=== PATIENT | male | born 1940 | race Caucasian/White ===

== ENCOUNTER 2019-02-02 18:13 | Emergency (ER) | payer MEDICARE, BC ==
[~2019-02-02] VITALS: Ht 190.5 cm; Wt 81.6 kg
[~2019-02-02 18:13] MED LIST: ACET1TAB38 PO; ALOE25CA2 PO; AMLO-304 PO; ASPI325T14 PO; ATOR40TA PO; CINN500C2 PO; GARL10002 PO; GLIM2TAB2 PO; INSU100I31 SQ; ISOS30TA4 PO; METF10007 PO; MULT-651 PO; NIAC500T PO; RANI300T PO; SAW160CA4 PO; SITA100T PO; VALS160T3 PO
[2019-02-02 19:00] VITALS: BP 133/78
[2019-02-02 19:50] VITALS: BP 132/74
--- NOTE | 2019-02-02 19:54 | ER.PDOC ---
General Chief Complaint: Requesting Medical Care Stated Complaint: N/V/D Time seen by MD: 19:53 Source: patient Exam Limitations: no limitations History of Present Illness Initial Comments one day of diarrhea watery in nature x 5, vomiting x 2 today with mild mid abd pain, no blood in stool or vomit, patient has pancreatic ca but no rad or chemo since last year, no fever or other complaints, no bad food or sick contacts that are known Timing/Duration: 24 hours Severity/Quality: mild Radiation: epigastric Associated Symptoms: diarrhea, nausea/vomiting Allergies: Coded Allergies: No Known Allergies (Unverified , 08/04/15) Home Meds Active Scripts Acetaminophen With Codeine (TYLENOL-COD #4 TABLET) 1 Each Tablet, 1 EACH PO TID PRN for PAIN, #30 TAB 0 Refills Prov:DENISSE MESSINA MD 06/27/17 Reported Medications Niacin (NIASPAN) 500 Mg Tab.er.24h, 1 TAB PO HS, #30 TAB 5 Refills 06/25/17 Multivits-Min/FA/Lycopene/Lut (Abc Plus Tablet) 1 Each Tablet, 1 EACH PO DAILY, TABLET 06/25/17 Cinnamon Bark (CINNAMON) 500 Mg Capsule, 500 MG PO DAILY, CAPSULE 06/25/17 Garlic (GARLIC) 1,000 Mg Capsule, 1000 MG PO HS, CAPSULE 06/25/17 Aspirin (ASPIRIN) 325 Mg Tablet, 1 TAB PO DAILY, #30 TAB 5 Refills 06/25/17 Aloe Vera (ALOE VERA) 25 Mg Capsule, 50 MG PO BID, CAPSULE 06/25/17 Saw Hopkins (SAW PALMETTO) 160 Mg Capsule, 160 MG PO DAILY, CAPSULE 06/25/17 Insulin Degludec (Tresiba Flextouch U-100) 100 Unit/Ml (3 Ml) Insuln.pen, 14 UNIT SQ DAILY 06/25/17 Valsartan (DIOVAN) 160 Mg Tablet, 1 TAB PO DAILY, #30 TAB 5 Refills 06/25/17 Isosorbide Mononitrate (ISOSORBIDE MONONITRATE ER) 30 Mg Tab.er.24h, 1 TAB PO DAILY, #30 TAB 5 Refills 08/04/15 Glimepiride (GLIMEPIRIDE) 2 Mg Tablet, 1 TAB PO DAILY, #30 TAB 5 Refills 08/04/15 Atorvastatin 40MG (LIPITOR 40MG) 40 Mg Tablet, 1 TAB PO HS, #90 TAB 1 Refill 08/04/15 Sitagliptin Phosphate (JANUVIA) 100 Mg Tablet, 1 TAB PO DAILY, #30 TAB 5 Refills 08/04/15 Metformin Hcl (METFORMIN HCL) 1,000 Mg Tablet, 1 TAB PO BID, #60 TAB 5 Refills 08/04/15 Ranitidine Hcl (RANITIDINE HCL) 300 Mg Tablet, 1 TAB PO HS, #90 TAB 3 Refills 08/04/15 Past Medical History Medical History: other Surgical History: no surgical history Social History Drug Use: none Constitutional: denies chills, denies fever EENTM: denies ear pain, denies nose pain Respiratory: denies cough, denies shortness of breath, denies SOB with exertion , denies SOB at rest Cardiovascular: denies chest pain, denies lightheadedness, denies palpitations , denies syncope Gastrointestinal: diarrhea, nausea, vomiting Genitourinary: denies burning, denies frequency, denies flank pain Skin: denies rash Psychiatric/Neurological: denies headache, denies numbness, denies paresthesia Endocrine: denies increased urine Hematologic/Lymphatic: denies anemia Physical Exam General Appearance: No Apparent Distress, WD/WN HEENT: PERRL/EOMI, Normal ENT Inspection Neck: Non-Tender, Full Range of Motion Respiratory: chest non-tender, lungs clear, normal breath sounds Cardiovascular: Normal Peripheral Pulses, Regular Rate, Rhythm Gastrointestinal: Non Tender Back: Normal Inspection, No CVA Tenderness Extremities: Normal Range of Motion, Non-Tender, Normal Inspection 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
[2019-02-02] MEDS ORDERED: NS 1000ML 1,000 ML IV ONE ×2 (20:00)
[2019-02-02 20:25] LABS: BASOPHIL % 0.1 % (0.0-0.2); EOSINOPHIL % 0.1 % (0.0-5.0); HEMOGLOBIN 12.8 g/dL (13.9-16.3); LYMPHOCYTES # 0.2 10^3/uL (1.0-4.8); LYMPHOCYTES % 2.2 % (24.0-44.0); MEAN CELL HGB 32.6 pg (26-34); MEAN CELL HGB CONCENTRATION 33.7 g/dL (33-37); MEAN CORP VOLUME 96.7 fL (78-100); MEAN PLATELET VOLUME 8.8 fL (7.8-11.0); MONOCYTES # 0.9 10^3/uL (0.3-0.8); MONOCYTES % 9.7 % (5.0-12.0); NEUTROPHIL # 7.9 10^3/uL (1.8-7.7); NEUTROPHILS % 87.8 % (41.0-85.0); RED CELL DISTRIBUTION WIDTH 13.2 % (11.5-14.5)
[2019-02-02] MEDS ORDERED: NS 1000ML 1,000 ML ONE (20:30)
[2019-02-02 20:36] VITALS: BP 124/66
[2019-02-02 20:45] LABS: CALCIUM 8.9 mg/dL (8.4-10.5); CARBON DIOXIDE 23.2 mmol/L (20.0-32)
[2019-02-02 20:57] LABS: BAND NEUTROPHILS 6 % (2-6); LYMPHOCYTE 5 % (25-36); SEGMENTED NEUTROPHILS 82 % (31-76)
[2019-02-02 20:58] LABS: MONOCYTE 7 % (3-9)
[2019-02-02 21:36] VITALS: BP 140/72
--- NOTE | 2019-02-02 21:50 | DIREP ---
PROCEDURE:CT ABDOMEN/PELVIS W/ CONTRAST COMPARISON:[facility], MR, MRI ABDOMEN W & W/O CONTRAST, 06/26/2017, 06:17 PM. [facility], CT, CT ABD/PELVIS W/ CONTRAST, 06/25/2017, 09:09 PM. INDICATIONS:abd pain with diarrhea with hx pancreatic ca TECHNIQUE:Axial images were created through the abdomen and pelvis with non-ionic intravenous contrast material. No oral contrast was administered. Sagittal and coronal reconstructions were performed from source images. FINDINGS: LOWER CHEST:Mild dependent atelectasis. LIVER: No hepatic lesion. Portal veins are patent. BILIARY: Gallbladder is borderline distended. There is gallbladder wall thickening up to 6 mm. Common bile duct stent in place. No intrahepatic biliary dilation. PANCREAS: Atrophic. The mass at the pancreatic neck is difficult to identify, there is residual tissue in this area measuring 2.9 x 1.8 cm. SPLEEN: Normal, nonenlarged. KIDNEYS: No renal mass. No hydronephrosis or collecting system stone identified. ADRENALS: Normal. AORTA/VASCULAR: Normal. No aneurysm or dissection. RETROPERITONEUM: No adenopathy or mass. BOWEL/MESENTERY: Small hiatal hernia. The small bowel is fluid-filled and moderately dilated in areas to 3.9 cm transverse. Findings may be transient or suggest ileus, enteritis is possible. No evidence of more proximal obstruction. Appendix not visualized, no pericecal inflammatory changes to suggest appendicitis. Fluid-filled colon, consistent with diarrheal illness. Few scattered sigmoid diverticula without CT evidence of diverticulitis. ABDOMINAL WALL: Normal. No mass or hernia. URINARY BLADDER: Inherently limited evaluation of the wall; unremarkable for level of distension. PELVIS: Prostatic tissue present. No adenopathy. BONES: Intervertebral disc height loss at L4-L5 with minimal anterolisthesis of L4 on L5. Sclerotic lesion in the left 12th rib. OTHER: No free air or fluid. CONCLUSION: 1. Fluid-filled colon consistent with diarrheal illness. The colon is nondilated. The small bowel is also fluid-filled and moderately dilated in areas without contiguous dilation to suggest obstruction. Findings may represent enteritis or scattered ileus. 2. Gallbladder wall thickening, borderline distended gallbladder. No pericholecystic fluid. Gallbladder wall thickening may be related to chronic inflammation, infectious or tumor. 3. Small residual tissue in the region of pancreatic neck mass. Common bile duct stent in place. No intrahepatic biliary dilation. Dictated by: Aye Carter MD on 02/02/2019 at 09:38 PM
[2019-02-02 22:36] VITALS: BP 149/75
[2019-02-02] MEDS ORDERED: ZOFRAN ONE (22:45)
[2019-02-03] MEDS ORDERED: ZOFRAN IV STA
[2019-02-03 05:30] VITALS: BP 149/75
== END 2019-02-02 22:58 | disposition home or self-care (01) ==
LOC: ER 18:13
DX: R19.7 Diarrhea, unspecified (principal); R10.9 Unspecified abdominal pain; R11.2 Nausea with vomiting, unspecified; Z79.82 Long term (current) use of aspirin; Z79.899 Other long term (current) drug therapy
CPT/HCPCS: 36415; 74177; 80053; 83690; 85025; 96361; 96374; 99284; J2405; J7030; Q9967

== ENCOUNTER 2019-05-04 21:07 | Emergency (ER) | payer MEDICARE, BC ==
[~2019-05-04] VITALS: Ht 190.5 cm; Wt 81.6 kg
[2019-05-04 21:15] VITALS: BP 137/83
[2019-05-04] MEDS ORDERED: DILAUDID IV STA (22:03)
[2019-05-04] MEDS ORDERED: ZOFRAN IV STA (22:03)
--- NOTE | 2019-05-04 22:05 | ER.PDOC ---
General Chief Complaint: Abdomen Pain Stated Complaint: ABD PAIN Time seen by MD: 21:45 Source: patient, family (SPOUSE) Exam Limitations: no limitations History of Present Illness Initial Comments 78 YO MALE WITH HISTORY OF PANCREATIC CANCER COMPLAINING OF UPPER ABDOMINAL PAIN X 4 DAYS. THE PAIN IS SHARP, SEVERE, RADIATES TO HIS UPPER BACK.. NO VOMITING, NO FEVER, BUT STATES NIGHT SWEATS.. HE HAD NORMAL BOWEL MOVEMENT YESTERDAY. NO CHEST PAIN OR SHORTNESS OF BREATH. HIS ONCOLOGIST ORDERED A PET SCAN WHICH IS PENDING. PATIENT STATES HIS DOCTOR WROTE HIM NARCOTIC MEDICINE BUT HE DOES NOT WANT TO TAKE IT FOR THE PAIN. Timing/Duration: other (4 DAYS) Severity/Quality: severe, throbbing Radiation: RUQ, epigastric Associated Symptoms: back pain Exacerbated by: nothing Relieved By: other Allergies: Coded Allergies: No Known Allergies (Unverified , 08/04/15) Home Meds Active Scripts Acetaminophen With Codeine (TYLENOL-COD #4 TABLET) 1 Each Tablet, 1 EACH PO TID PRN for PAIN, #30 TAB 0 Refills Prov:DENISSE MESSINA MD 06/27/17 Reported Medications Niacin (NIASPAN) 500 Mg Tab.er.24h, 1 TAB PO HS, #30 TAB 5 Refills 06/25/17 Multivits-Min/FA/Lycopene/Lut (Abc Plus Tablet) 1 Each Tablet, 1 EACH PO DAILY, TABLET 06/25/17 Cinnamon Bark (CINNAMON) 500 Mg Capsule, 500 MG PO DAILY, CAPSULE 06/25/17 Garlic (GARLIC) 1,000 Mg Capsule, 1000 MG PO HS, CAPSULE 06/25/17 Aspirin (ASPIRIN) 325 Mg Tablet, 1 TAB PO DAILY, #30 TAB 5 Refills 06/25/17 Aloe Vera (ALOE VERA) 25 Mg Capsule, 50 MG PO BID, CAPSULE 06/25/17 Saw [place] (SAW PALMETTO) 160 Mg Capsule, 160 MG PO DAILY, CAPSULE 06/25/17 Insulin Degludec (Tresiba Flextouch U-100) 100 Unit/Ml (3 Ml) Insuln.pen, 14 UNIT SQ DAILY 06/25/17 Valsartan (DIOVAN) 160 Mg Tablet, 1 TAB PO DAILY, #30 TAB 5 Refills 06/25/17 Isosorbide Mononitrate (ISOSORBIDE MONONITRATE ER) 30 Mg Tab.er.24h, 1 TAB PO DAILY, #30 TAB 5 Refills 08/04/15 Glimepiride (GLIMEPIRIDE) 2 Mg Tablet, 1 TAB PO DAILY, #30 TAB 5 Refills 08/04/15 Atorvastatin 40MG (LIPITOR 40MG) 40 Mg Tablet, 1 TAB PO HS, #90 TAB 1 Refill 08/04/15 Sitagliptin Phosphate (JANUVIA) 100 Mg Tablet, 1 TAB PO DAILY, #30 TAB 5 Refills 08/04/15 Metformin Hcl (METFORMIN HCL) 1,000 Mg Tablet, 1 TAB PO BID, #60 TAB 5 Refills 08/04/15 Ranitidine Hcl (RANITIDINE HCL) 300 Mg Tablet, 1 TAB PO HS, #90 TAB 3 Refills 08/04/15 Vital Signs First Vital Signs Date Time Temp Pulse Resp B/P (MAP) Pulse Ox O2 Delivery O2 Flow Rate FiO2 05/04/19 21:15 97.5 70 16 97.5 05/04/19 21:15 98 Room Air 05/04/19 21:15 137/83 (101) Last Vital Signs Date Time Temp Pulse Resp B/P (MAP) Pulse Ox O2 Delivery O2 Flow Rate FiO2 05/04/19 23:00 71 16 141/85 (103) 96 Room Air 05/04/19 21:15 97.5 97.5 Past Medical History Medical History: cancer (PANCREATIC CANCER.), diabetes, hypertension Surgical History: cancer surgery, other Family History Significant Family History: no pertinent family hx Social History Smoking: quit greater than 1 year Alcohol Use: none Drug Use: none Constitutional: denies chills, denies fever EENTM: see HPI Respiratory: denies cough, denies shortness of breath Cardiovascular: denies chest pain, denies palpitations Gastrointestinal: abdominal pain Genitourinary: denies burning, denies dysuria Musculoskeletal: back pain Skin: denies rash Psychiatric/Neurological: no symptoms reported Endocrine: no symptoms reported Hematologic/Lymphatic: no symptoms reported Physical Exam General Appearance: Mild Distress HEENT: PERRL/EOMI, Normal ENT Inspection, Pharynx Normal Neck: Non-Tender, Full Range of Motion, Supple Respiratory: chest non-tender, lungs clear, normal breath sounds Cardiovascular: Normal Peripheral Pulses, Regular Rate, Rhythm, No Edema Gastrointestinal: Normal Bowel Sounds, No Organomegaly, Soft, Guarding, Tenderness (RIGHT UPPER QUADRANT, EPIGASTRIUM) Back: Normal Inspection, No CVA Tenderness Extremities: Normal Range of Motion, Non-Tender, Normal Inspection, No Pedal Edema Neurologic/Psychiatric: Alert, Normal Mood/Affect (NO FFOCAL NEURO DEFICIT), Oriented x 3 Skin: Normal Color, Warm/Dry Results/Orders Results/Orders Orders - FATOUMATA SALES MD Cbc With Auto Diff (05/04/19 22:03) Comprehensive Metabolic Panel (05/04/19 22:03) Amylase (05/04/19 22:03) Lipase (05/04/19 22:03) PT (05/04/19 22:) Partial Thromboplastin Time. (05/04/19 22:) Urinalysis (05/04/19 22:03) Saline Lock (05/04/19 22:03) Ondansetron Hcl (Zofran) (05/04/19 22:03) Hydromorphone Inj (Dilaudid) (05/04/19 22:03) Ct Abd/Pel With Iv Contrast (05/04/19 23:43) 0.9 % Sodium Chloride (Ns 500ml) (05/05/19 00:00) 0.9 % Sodium Chloride (Ns 100ml) (05/05/19 02:37) Piperacillin Sodium/Tazobactam (Zosyn 3. (05/05/19 02:37) Piperacillin Sodium/Tazobactam (Zosyn 3. (05/05/19 03:01) Vital Signs Date Time Temp Pulse Resp B/P (MAP) Pulse Ox O2 Delivery O2 Flow Rate FiO2 05/04/19 23:00 71 16 141/85 (103) 96 Room Air 05/04/19 21:15 97.5 70 16 137/83 (101) 98 Room Air 97.5 05/04/19 21:15 97.5 70 16 98 Room Air 97.5 05/04/19 21:15 97.5 70 16 97.5 Administered Medications Medications (Trade) Dose Ordered Sig/Keith Route PRN Reason Start Time Stop Time Status Last Admin Dose Admin Hydromorphone HCl (Dilaudid) 0.5 mg STAT STAT IV 05/04/19 22:03 05/04/19 22:04 UNV 05/04/19 22:31 0.5 MG Ondansetron HCl (Zofran) 4 mg STAT STAT IV 05/04/19 22:03 05/04/19 22:04 UNV 05/04/19 22:31 4 MG Piperacillin Sod/ Tazobactam Sod 3.375 gm/Sodium Chloride 100 ml @ 100 mls/hr STAT STAT IV 05/05/19 03:01 05/05/19 04:00 05/05/19 03:03 100 MLS/HR Sodium Chloride 500 ml @ 500 mls/hr Q1H ONCE IV 05/05/19 00:00 05/05/19 00:59 UNV 05/05/19 00:28 500 MLS/HR Laboratory Tests Test 05/04/19 21:21 05/04/19 22:15 Urine Collection Type UNKNOWN Urine Color YELLOW (YELLOW) Urine Appearance CLEAR (CLEAR) Urine Bilirubin NEGATIVE MG/DL (NEGATIVE) Urine Ketones NEGATIVE (NEGATIVE) Urine Specific Tyler 1.010 (1.005-1.035) Urine pH 5 (5.0-6.0) Urine Protein NEGATIVE (NEGATIVE) Urine Urobilinogen NORMAL (NEGATIVE) Urine Nitrate NEGATIVE (NEGATAIVE) Urine Leukocyte Esterase NEGATIVE (NEGATIVE) Urine Blood NEGATIVE (NEGATIVE) Urine Glucose NORMAL (NEGATIVE) White Blood Count 10.5 10^3/uL (4.5-11.0) Red Blood Count 3.26 10^6/uL (4.50-5.90) L Hemoglobin 10.0 g/dL (13.9-16.3) L Hematocrit 30.5 % (37.0-53.0) L Mean Corpuscular Volume 93.6 fL (78-100) Mean Corpuscular Hemoglobin 30.7 pg (26-34) Mean Corpuscular Hemoglobin Concent 32.8 g/dL (33-37) L Red Cell Distribution Width 13.3 % (11.5-14.5) Platelet Count 373 10^3/uL (150-400) Mean Platelet Volume 8.3 fL (7.8-11.0) Neutrophils (%) (Auto) 75.0 % (41.0-85.0) Lymphocytes (%) (Auto) 11.8 % (24.0-44.0) L Monocytes (%) (Auto) 11.3 % (5.0-12.0) Neutrophils # (Auto) 7.9 10^3/uL (1.8-7.7) H Lymphocytes # (Auto) 1.2 10^3/uL (1.0-4.8) Monocytes # (Auto) 1.2 10^3/uL (0.3-0.8) H Absolute Immature Granulocyte (auto 0.05 10^3 u/L (0-2) Immature Granulocytes % 0.50 % (0.00-0.50) Eosinophils % 1.2 % (0.0-5.0) Basophils % 0.2 % (0.0-0.2) Basophils # 0.0 10^3/uL (0.0-0.1) Eosinophil Count 0.1 10^3/uL (0.0-0.2) Prothrombin Time 11.1 SEC (9.8-11.9) Prothrombin Time INR (Non-Therap) 1.1 PTT 29.5 SEC (24.67-30.72) Sodium Level 138 mmol/L (132-145) Potassium Level 4.2 mmol/L (3.6-5.2) Chloride Level 101.0 mmol/L (96-109) Carbon Dioxide Level 27.9 mmol/L (20.0-32) Anion Gap 13.3 Blood Urea Nitrogen 15 mg/dL (7-18) Creatinine 0.97 mg/dL (0.59-1.40) Estimated GFR () 90.1 (>/=60) BUN/Creatinine Ratio 15.0 Glucose Level 170 mg/dL (70-110) H Calcium Level 9.5 mg/dL (8.4-10.5) Total Bilirubin 0.3 mg/dL (0.2-1.0) Aspartate Amino Transferase (AST) 20 U/L (0-35) Alanine Aminotransferase (ALT) 20 U/L (12-78) Alkaline Phosphatase 126 U/L (50-136) Total Protein 7.6 g/dL (6.4-8.2) Albumin 2.9 g/dL (3.4-5.0) L Globulin 4.7 Amylase Level 31 U/L (25-115) Lipase 27 U/L (114-286) L Progress Progress CBS UNREMARKABLE EXCEPT FOR ANEMIA WITH HEMOGLOBIN 10.1. CHEM UNREMARKABLE- NORMAL LIVER FUNCTION TEST. URINALYSIS UNREMARKABLE. CT ABDOMEN SHOW DISTENDED GALL BLADDER WITH THICKENED WALL, PERICHOLECYSTIC FLUID. LIKELY CHOLECYSTITIS. SEE REPORT FOR DETAILS. IV FLUID, ANTIBIOTICS, ANALGESIC GIVEN WILL TRANSFER. EKG/XRAY/CT/US CT Comments: :Distended gallbladder with thickened wall, now with loculations or Consult/PCP Time Consult/PCP Called: 02:12 Consult/PCP: DR. JARRETT Reason/Comments: OR NOT FUNCTIONAL. TRANSFER OUT. #2 Time Consult/PCP Called: 03:32 Consult/PCP: DR. STERN Reason/Comments: ACCEPTED AT [facility] Course Sepsis Screening Results: Posi: POSITIVE SEPSIS RISK Duration or Total Time Spent w: 15 Vitals & review Data Vital Sign - Last 24 Hours 05/04/19 05/04/19 05/04/19 05/04/19 21:15 21:15 21:15 23:00 Temp 97.5 97.5 97.5 97.5 97.5 97.5 Pulse 70 70 70 71 Resp 16 16 16 16 B/P (MAP) 137/83 (101) 141/85 (103) Pulse Ox 98 98 96 O2 Delivery Room Air Room Air Room Air Laboratory Tests Test 05/04/19 21:21 05/04/19 22:15 Urine Collection Type UNKNOWN Urine Color YELLOW Urine Appearance CLEAR Urine Bilirubin NEGATIVE MG/DL Urine Ketones NEGATIVE Urine Specific Tyler 1.010 Urine pH 5 Urine Protein NEGATIVE Urine Urobilinogen NORMAL Urine Nitrate NEGATIVE Urine Leukocyte Esterase NEGATIVE Urine Blood NEGATIVE Urine Glucose NORMAL White Blood Count 10.5 10^3/uL Red Blood Count 3.26 10^6/uL Hemoglobin 10.0 g/dL Hematocrit 30.5 % Mean Corpuscular Volume 93.6 fL Mean Corpuscular Hemoglobin 30.7 pg Mean Corpuscular Hemoglobin Concent 32.8 g/dL Red Cell Distribution Width 13.3 % Platelet Count 373 10^3/uL Mean Platelet Volume 8.3 fL Neutrophils (%) (Auto) 75.0 % Lymphocytes (%) (Auto) 11.8 % Monocytes (%) (Auto) 11.3 % Neutrophils # (Auto) 7.9 10^3/uL Lymphocytes # (Auto) 1.2 10^3/uL Monocytes # (Auto) 1.2 10^3/uL Absolute Immature Granulocyte (auto 0.05 10^3 u/L Immature Granulocytes % 0.50 % Eosinophils % 1.2 % Basophils % 0.2 % Basophils # 0.0 10^3/uL Eosinophil Count 0.1 10^3/uL Prothrombin Time 11.1 SEC Prothrombin Time INR (Non-Therap) 1.1 Activated Partial Thromboplast Time 29.5 SEC Sodium Level 138 mmol/L Potassium Level 4.2 mmol/L Chloride Level 101.0 mmol/L Carbon Dioxide Level 27.9 mmol/L Anion Gap 13.3 Blood Urea Nitrogen 15 mg/dL Creatinine 0.97 mg/dL Estimated GFR () 90.1 BUN/Creatinine Ratio 15.0 Glucose Level 170 mg/dL Calcium Level 9.5 mg/dL Total Bilirubin 0.3 mg/dL Aspartate Amino Transf (AST/SGOT) 20 U/L Alanine Aminotransferase (ALT/SGPT) 20 U/L Alkaline Phosphatase 126 U/L Total Protein 7.6 g/dL Albumin 2.9 g/dL Globulin 4.7 Amylase Level 31 U/L Lipase 27 U/L Current Medications Medications (Trade) Dose Ordered Sig/Keith PRN Reason Start Time Stop Time Status Last Admin Hydromorphone HCl (Dilaudid) 0.5 mg STAT STAT 05/04/19 22:03 05/04/19 22:04 UNV 05/04/19 22:31 Ondansetron HCl (Zofran) 4 mg STAT STAT 05/04/19 22:03 05/04/19 22:04 UNV 05/04/19 22:31 Piperacillin Sod/ Tazobactam Sod 3.375 gm/Sodium Chloride 100 ml @ 100 mls/hr STAT STAT 05/05/19 03:01 05/05/19 04:00 05/05/19 03:03 Sepsis Infection Criteria Pres: None O2 Sat by Pulse Oximetry: 98 Departure Time of Disposition: 03:33 Disposition: 05 DISCH/XFER OTHER ([facility]) Impression: Primary Impression: Abdominal pain Additional Impression: Cholecystitis, acute Condition: Stable If Transfer, List PT Destinati: [facility] Referrals: SHAVON COLLIER MD (PCP) PRIMARY CARE PROVIDER Duration or Time Spent with Pa: 60 MIN Problem Qualifiers Primary Impression: Abdominal pain Abdominal location: right upper quadrant Qualified Codes: R10.11 - Right upper quadrant pain FATOUMATA SALES MD May 04, 2019 22:05
[2019-05-04] MEDS ORDERED: ZOFRAN ONE (22:10)
[2019-05-04] MEDS ORDERED: DILAUDID ONE (22:10)
[2019-05-04 22:13] LABS: BILIRUBIN,URINE NEGATIVE (NEGATIVE); UROBILINOGEN,URINE NORMAL (NEGATIVE)
[2019-05-04 22:16] LABS: APPEARANCE,URINE CLEAR (CLEAR); UA COLOR YELLOW (YELLOW)
[2019-05-04 22:22] LABS: BASOPHIL % 0.2 % (0.0-0.2); EOSINOPHIL # 0.1 10^3/uL (0.0-0.2); EOSINOPHIL % 1.2 % (0.0-5.0); LYMPHOCYTES # 1.2 10^3/uL (1.0-4.8); LYMPHOCYTES % 11.8 % (24.0-44.0); MEAN CELL HGB 30.7 pg (26-34); MEAN CELL HGB CONCENTRATION 32.8 g/dL (33-37); MEAN CORP VOLUME 93.6 fL (78-100); MEAN PLATELET VOLUME 8.3 fL (7.8-11.0); MONOCYTES # 1.2 10^3/uL (0.3-0.8); MONOCYTES % 11.3 % (5.0-12.0); NEUTROPHIL # 7.9 10^3/uL (1.8-7.7); RED CELL DISTRIBUTION WIDTH 13.3 % (11.5-14.5); WHITE BLOOD CELL 10.5 10^3/uL (4.5-11.0)
[2019-05-04 22:44] LABS: CARBON DIOXIDE 27.9 mmol/L (20.0-32)
[2019-05-04 22:56] LABS: CALCIUM 9.5 mg/dL (8.4-10.5)
--- NOTE | 2019-05-04 22:56 | NUR ---
Update Patient resting comfortable at this time.
[2019-05-04 23:00] VITALS: BP 141/85
--- NOTE | 2019-05-04 23:48 | NUR ---
Update Patient is resting with eyes closed. When asked patient rates pain at a "4" on a scale of 1-10. Patient is stable at this time.
[2019-05-05] VITALS (7 sets, daily range): BP systolic 134–154; BP diastolic 75–94
--- NOTE | 2019-05-05 00:02 | NUR ---
CT Patient gone to CT
[2019-05-05] MEDS ORDERED: NS 500ML 500 ML IV ONE ×2 (00:24)
--- NOTE | 2019-05-05 01:31 | DIREP ---
PROCEDURE:CT ABDOMEN/PELVIS W/ CONTRAST COMPARISON:[facility], CT, CT ABD/PELVIS W/ CONTRAST, 02/02/2019, 09:01 PM. INDICATIONS:ABDOMINAL PAIN TECHNIQUE:Axial images were created through the abdomen and pelvis with non-ionic intravenous contrast material. No oral contrast was administered. Sagittal and coronal reconstructions were performed from source images. FINDINGS: LUNG BASES:Coronary artery calcifications LIVER:Normal. No significant liver lesions are identified. BILIARY:Distended gallbladder with pericholecystic fluid and wall thickening, progressed since 02/02/2019. Common duct stent unchanged. Small amount of pneumobilia in the liver. PANCREAS:Subtle inflammatory change at the head of the pancreas 2nd portion of the duodenum, and dora hepatis with thickening of the retroperitoneal fat. No fluid collection. The pancreas is otherwise atrophic.. SPLEEN:Normal. No enlargement or focal lesion. ADRENALS:Normal. No mass or enlargement. URINARY TRACT:Normal. No focal lesions or hydronephrosis. AORTA/VASCULAR:Calcifications at the origin of both renal arteries. No aneurysm RETROPERITONEUM:Normal. No mass or adenopathy. BOWEL/MESENTERY:No dilated loops. No oral contrast. Unable to identify the appendix, normal or abnormal ABDOMINAL WALL:Normal. No mass or hernia. PELVIC ORGANS:Normal. No visible mass. Pelvic organs appropriate for patient age. BONES:Subtle anterolisthesis of L4 on L5. No compression fractures OTHER:Negative. CONCLUSION:Distended gallbladder with thickened wall, now with loculations or pericholecystic fluid. Common duct stent unchanged. Subtle inflammation of the pancreatic head, 2nd portion of the duodenum, and the adjacent fat. Unable to identify the appendix. No dilated bowel loops. No free fluid in the abdomen or pelvis. Dictated by: Jennifer Salas MD on 05/05/2019 at 01:23 AM
--- NOTE | 2019-05-05 02:12 | NUR ---
Job Ceja on phone with Dr. Kaiser
[2019-05-05] MEDS ORDERED: NS 100ML 100 ML IV ONE (02:37)
[2019-05-05] MEDS ORDERED: ZOSYN 3.375 GRAM VIAL IV ONE (02:37)
[2019-05-05] MEDS ORDERED: ZOSYN 3.375 GRAM VIAL 3.375 GM in NS 100ML 100 ML IV STA (03:01)
--- NOTE | 2019-05-05 03:32 | NUR ---
Transfer: [facility] called for transfer. Dr. Aburto in ED to accept pt.
--- NOTE | 2019-05-05 03:38 | NUR ---
Update Patient ambulating to restroom at this time. Patient is alert and oriented X 3 at this time.
--- NOTE | 2019-05-05 03:39 | NUR ---
Report Report given to Erma at [facility]
--- NOTE | 2019-05-05 03:47 | NUR ---
[facility] Spoke to [facility]. Eyewitness Surveillance states that she will get ahold of EMS crew and see if they can take transfer. Tech states that they will call us back.
--- NOTE | 2019-05-05 03:58 | NUR ---
[facility] transfer to [facility]
--- NOTE | 2019-05-05 04:59 | NUR ---
Update Patient ambulating to restroom at this time. Patient is in stable condtion at this time.
--- NOTE | 2019-05-05 05:10 | NUR ---
[facility] at [facility] bedside. Patient is ambulatory to [facility]. Patient is in stable condition at time of transfer
== END 2019-05-05 05:10 | disposition short-term general hospital (02) ==
LOC: ER 21:07
DX: K81.0 Acute cholecystitis (principal); I10 Essential (primary) hypertension; E11.9 Type 2 diabetes mellitus without complications; Z79.82 Long term (current) use of aspirin; Z79.899 Other long term (current) drug therapy; Z85.07 Personal history of malignant neoplasm of pancreas; Z87.891 Personal history of nicotine dependence
CPT/HCPCS: 36415; 74177; 80053; 81002; 82150; 83690; 85025; 85610; 85730; 96365; 96375; 99285; J1170; J2405; J2543 ×2; J7040; J7050 ×2; Q9965; 99284

== ENCOUNTER 2019-06-05 13:28 | Emergency (ER) | payer MEDICARE, BC ==
[~2019-06-05] VITALS: Ht 190.5 cm; Wt 77.1 kg
[2019-06-05 13:57] VITALS: BP 130/86
[2019-06-05 14:29] LABS: BASOPHIL % 0.1 % (0.0-0.2); EOSINOPHIL % 0.2 % (0.0-5.0); HEMOGLOBIN 10.9 g/dL (13.9-16.3); LYMPHOCYTES # 0.3 10^3/uL (1.0-4.8); MEAN CELL HGB CONCENTRATION 32.6 g/dL (33-37); MEAN PLATELET VOLUME 8.6 fL (7.8-11.0); MONOCYTES # 0.6 10^3/uL (0.3-0.8); MONOCYTES % 4.4 % (5.0-12.0); NEUTROPHIL # 11.9 10^3/uL (1.8-7.7); NEUTROPHILS % 92.8 % (41.0-85.0); RED CELL DISTRIBUTION WIDTH 15.7 % (11.5-14.5); WHITE BLOOD CELL 12.8 10^3/uL (4.5-11.0)
[2019-06-05] MEDS ORDERED: NS 1000ML 1,000 ML IV ONE (14:30)
[2019-06-05] MEDS ORDERED: NS 1000ML 1,000 ML ONE (14:37)
[2019-06-05 14:43] LABS: BILIRUBIN,URINE NEGATIVE (NEGATIVE); UROBILINOGEN,URINE NORMAL (NEGATIVE)
[2019-06-05 14:44] LABS: CALCIUM 8.5 mg/dL (8.4-10.5); CARBON DIOXIDE 24.2 mmol/L (20.0-32)
[2019-06-05 14:44] LABS: APPEARANCE,URINE CLEAR (CLEAR); UA COLOR YELLOW (YELLOW)
[2019-06-05 15:20] LABS: SEGMENTED NEUTROPHILS 88 % (31-76)
[2019-06-05 15:21] LABS: ANISOCYTOSIS 1+ (NEGATIVE); EOSINOPHIL 2 % (1-4); LYMPHOCYTE 6 % (25-36); MONOCYTE 4 % (3-9); TOXIC GRANULATION 1+ (NEGATIVE)
--- NOTE | 2019-06-05 15:43 | DIREP ---
PROCEDURE:CT ABDOMEN/PELVIS W/ CONTRAST COMPARISON:[facility], CT, CT ABD/PELVIS W/ CONTRAST, 06/25/2017, 09:09 PM. [facility], CT, CT ABD/PELVIS W/ CONTRAST, 02/02/2019, 09:01 PM. [facility], CT, CT ABD/PELVIS W/ CONTRAST, 05/05/2019, 00:01 AM. INDICATIONS:abd pain, 4 wks post partial cholecystectomy at [facility] TECHNIQUE:Axial images were created through the abdomen and pelvis with non-ionic intravenous contrast material. No oral contrast was administered. Sagittal and coronal reconstructions were performed from source images. FINDINGS: LUNG BASES:Normal. No visible pulmonary or pleural disease. LIVER:Normal. No significant liver lesions are identified. BILIARY:CBD stent again noted with pneumobilia. Contracted gallbladder with thickened wall is present in the gallbladder fossa. PANCREAS:No masses. Body and tail are atrophic. SPLEEN:Normal. No enlargement or focal lesion. ADRENALS:Normal. No mass or enlargement. URINARY TRACT:Normal. No focal lesions or hydronephrosis. AORTA/VASCULAR:Normal. No aneurysm. RETROPERITONEUM:Normal. No mass or adenopathy. BOWEL/MESENTERY:There are diverticula of the sigmoid colon without findings of acute diverticulitis. No obstruction, free air, or free fluid are present. The appendix is not visualized. ABDOMINAL WALL:Normal. No mass or hernia. PELVIC ORGANS:Normal. No visible mass. Pelvic organs appropriate for patient age. BONES:There are degenerative changes of the spine. OTHER:Negative. CONCLUSION: 1. Post recent partial cholecystectomy. Contracted gallbladder with thick donnelly present in the gallbladder fossa. Stable CBD stent. 2. Mild diverticulosis. 3. Atrophic body and tail of the pancreas. Dictated by: Ward Silva M.D. on 06/05/2019 at 03:21 PM
[2019-06-05 15:44] VITALS: BP 133/70
[2019-06-05] MEDS ORDERED: ZOSYN 3.375 GRAM VIAL 3.375 GM in NS 100ML 100 ML IV SCH (16:00)
[2019-06-05] MEDS ORDERED: NS 100ML 100 ML IV ONE (16:08)
[2019-06-05] MEDS ORDERED: ZOSYN 3.375 GRAM VIAL IV ONE (16:08)
--- NOTE | 2019-06-05 16:17 | NUR ---
TRANSFER DOCTOR PINEDA ON THE PHONE WITH [facility] TO DISCUSS TRANFER, DOCTOR FULLER ACCEPTED AND [facility].
--- NOTE | 2019-06-05 16:21 | ER.PDOC ---
General Chief Complaint: Abdomen Pain Stated Complaint: ADM PAIN Time seen by MD: 14:00 Source: patient, family Exam Limitations: no limitations History of Present Illness Initial Comments Pt began having increased pain in RUQ and across abd since yesterday. Feels similar to when he was sent to [facility] with a gangenous GB about 1 month ago. [place] feverish but did not take temp. Took Tylenol this am. Radiation: RUQ, epigastric Associated Symptoms: fever/chills Exacerbated by: movements Relieved By: nothing Allergies: Coded Allergies: No Known Allergies (Unverified , 08/04/15) Home Meds Active Scripts Acetaminophen With Codeine (TYLENOL-COD #4 TABLET) 1 Each Tablet, 1 EACH PO TID PRN for PAIN, #30 TAB 0 Refills Prov:DENISSE MESSINA MD 06/27/17 Reported Medications Niacin (NIASPAN) 500 Mg Tab.er.24h, 1 TAB PO HS, #30 TAB 5 Refills 06/25/17 Multivits-Min/FA/Lycopene/Lut (Abc Plus Tablet) 1 Each Tablet, 1 EACH PO DAILY, TABLET 06/25/17 Cinnamon Bark (CINNAMON) 500 Mg Capsule, 500 MG PO DAILY, CAPSULE 06/25/17 Garlic (GARLIC) 1,000 Mg Capsule, 1000 MG PO HS, CAPSULE 06/25/17 Aspirin (ASPIRIN) 325 Mg Tablet, 1 TAB PO DAILY, #30 TAB 5 Refills 06/25/17 Aloe Vera (ALOE VERA) 25 Mg Capsule, 50 MG PO BID, CAPSULE 06/25/17 Saw [place] (SAW [place]) 160 Mg Capsule, 160 MG PO DAILY, CAPSULE 06/25/17 Insulin Degludec (Tresiba Flextouch U-100) 100 Unit/Ml (3 Ml) Insuln.pen, 14 UNIT SQ DAILY 06/25/17 Valsartan (DIOVAN) 160 Mg Tablet, 1 TAB PO DAILY, #30 TAB 5 Refills 06/25/17 Isosorbide Mononitrate (ISOSORBIDE MONONITRATE ER) 30 Mg Tab.er.24h, 1 TAB PO DAILY, #30 TAB 5 Refills 08/04/15 Glimepiride (GLIMEPIRIDE) 2 Mg Tablet, 1 TAB PO DAILY, #30 TAB 5 Refills 08/04/15 Atorvastatin 40MG (LIPITOR 40MG) 40 Mg Tablet, 1 TAB PO HS, #90 TAB 1 Refill 08/04/15 Sitagliptin Phosphate (JANUVIA) 100 Mg Tablet, 1 TAB PO DAILY, #30 TAB 5 Refills 08/04/15 Metformin Hcl (METFORMIN HCL) 1,000 Mg Tablet, 1 TAB PO BID, #60 TAB 5 Refills 08/04/15 Ranitidine Hcl (RANITIDINE HCL) 300 Mg Tablet, 1 TAB PO HS, #90 TAB 3 Refills 08/04/15 Vital Signs First Vital Signs Date Time Temp Pulse Resp B/P (MAP) Pulse Ox O2 Delivery O2 Flow Rate FiO2 05/05/19 05:46 207.5 77 06/05/19 13:57 18 130/86 (101) 96 Room Air Last Vital Signs Date Time Temp Pulse Resp B/P (MAP) Pulse Ox O2 Delivery O2 Flow Rate FiO2 06/05/19 16:47 101.2 93 20 137/73 (94) 97 Room Air Past Medical History Medical History: diabetes, hypertension Surgical History: cholecystectomy Family History Significant Family History: no pertinent family hx Social History Smoking: non-smoker Alcohol Use: none Drug Use: none Constitutional: see HPI EENTM: no symptoms reported Respiratory: no symptoms reported Cardiovascular: no symptoms reported Gastrointestinal: see HPI, abdominal pain; denies blood streaked bowels, denies constipated, denies diarrhea; poor fluid intake (mild) Genitourinary: no symptoms reported Musculoskeletal: no symptoms reported Skin: no symptoms reported Endocrine: no symptoms reported Hematologic/Lymphatic: no symptoms reported All Other Systems: Reviewed and Negative Physical Exam General Appearance: No Apparent Distress, Other (uncomfortable) HEENT: PERRL/EOMI, Normal ENT Inspection, TMs Normal, Pharynx Normal Neck: Non-Tender, Full Range of Motion, Supple, Normal Inspection Respiratory: chest non-tender, lungs clear, normal breath sounds, no respiratory distress, no accessory muscle use Cardiovascular: Normal Peripheral Pulses Gastrointestinal: Normal Bowel Sounds, No Organomegaly, Soft, Tenderness (moderate to RUQ and epigastric region) Rectal: Deferred Back: Normal Inspection, No CVA Tenderness Extremities: Normal Range of Motion Neurologic/Psychiatric: No Motor/Sensory Deficits, Alert Skin: Warm/Dry, Other (surgical scars healed on abdomen) Lymphatic: No Adenopathy Results/Orders Results/Orders Orders - VELVET PINEDA DO Cbc With Auto Diff (06/05/19 14:03) Comprehensive Metabolic Panel (06/05/19 14:03) Lipase (06/05/19 14:03) Ct Abd/Pel With Iv Contrast (06/05/19 14:03) Urinalysis (06/05/19 14:03) 0.9 % Sodium Chloride (Ns 1000ml) (06/05/19 14:30) 0.9 % Sodium Chloride (Ns 1000ml) (06/05/19 14:37) Urine Culture (06/05/19 13:50) Piperacillin Sodium/Tazobactam (Zosyn 3. (06/05/19 16:00) Blood Culture (06/05/19 15:56) 0.9 % Sodium Chloride (Ns 100ml) (06/05/19 16:08) Piperacillin Sodium/Tazobactam (Zosyn 3. (06/05/19 16:08) Vital Signs Date Time Temp Pulse Resp B/P (MAP) Pulse Ox O2 Delivery O2 Flow Rate FiO2 06/05/19 16:47 101.2 93 20 137/73 (94) 97 Room Air 06/05/19 15:44 91 20 133/70 (91) 96 Room Air 06/05/19 14:30 100.8 06/05/19 13:57 98.5 98 18 06/05/19 13:57 98.5 98 18 96 Room Air 06/05/19 13:57 98.5 77 18 130/86 (101) 96 Room Air 05/05/19 05:46 207.5 77 Administered Medications Medications (Trade) Dose Ordered Sig/Keith Route PRN Reason Start Time Stop Time Status Last Admin Dose Admin Piperacillin Sod/ Tazobactam Sod 3.375 gm/Sodium Chloride 100 ml @ 100 mls/hr Q6H IV 06/05/19 16:00 07/05/19 15:59 06/05/19 16:08 100 MLS/HR Sodium Chloride 1,000 ml @ 0 mls/hr Q0M ONCE IV 06/05/19 14:30 06/05/19 14:31 DC 06/05/19 14:36 0 MLS/HR Laboratory Tests Test 06/05/19 13:50 06/05/19 14:20 06/05/19 14:34 Urine Collection Type VOID Urine Color YELLOW (YELLOW) Urine Appearance CLEAR (CLEAR) Urine Bilirubin NEGATIVE MG/DL (NEGATIVE) Urine Ketones NEGATIVE (NEGATIVE) Urine Specific Kane 1.020 (1.005-1.035) Urine pH 5 (5.0-6.0) Urine Protein NEGATIVE (NEGATIVE) Urine Urobilinogen NORMAL (NEGATIVE) Urine Nitrate NEGATIVE (NEGATAIVE) Urine Leukocyte Esterase NEGATIVE (NEGATIVE) Urine Blood 25 1+ (NEGATIVE) H Urine RBC 2-5 RBC/HPF (NONE SEEN) Urine WBC 0-2 WBC/HPF (0-2) Urine Squamous Epithelial Cells FEW #/HPF (FEW) Urine Bacteria RARE (NONE SEEN) Urine Glucose 100 (NEGATIVE) H White Blood Count 12.8 10^3/uL (4.5-11.0) H Red Blood Count 3.63 10^6/uL (4.50-5.90) L Hemoglobin 10.9 g/dL (13.9-16.3) L Hematocrit 33.4 % (37.0-53.0) L Mean Corpuscular Volume 92.0 fL (78-100) Mean Corpuscular Hemoglobin 30.0 pg (26-34) Mean Corpuscular Hemoglobin Concent 32.6 g/dL (33-37) L Red Cell Distribution Width 15.7 % (11.5-14.5) H Platelet Count 216 10^3/uL (150-400) Mean Platelet Volume 8.6 fL (7.8-11.0) Neutrophils (%) (Auto) 92.8 % (41.0-85.0) *H Lymphocytes (%) (Auto) 2.0 % (24.0-44.0) *L Monocytes (%) (Auto) 4.4 % (5.0-12.0) L Neutrophils # (Auto) 11.9 10^3/uL (1.8-7.7) H Lymphocytes # (Auto) 0.3 10^3/uL (1.0-4.8) L Monocytes # (Auto) 0.6 10^3/uL (0.3-0.8) Absolute Immature Granulocyte (auto 0.06 10^3 u/L (0-2) Immature Granulocytes % 0.50 % (0.00-0.50) Eosinophils % 0.2 % (0.0-5.0) Basophils % 0.1 % (0.0-0.2) Basophils # 0.0 10^3/uL (0.0-0.1) Eosinophil Count 0.0 10^3/uL (0.0-0.2) Sodium Level 137 mmol/L (132-145) Potassium Level 3.2 mmol/L (3.6-5.2) L Chloride Level 102.0 mmol/L (96-109) Carbon Dioxide Level 24.2 mmol/L (20.0-32) Anion Gap 14.0 Blood Urea Nitrogen 16 mg/dL (7-18) Creatinine 0.85 mg/dL (0.59-1.40) Estimated GFR () 104.9 (>/=60) BUN/Creatinine Ratio 18.0 Glucose Level 207 mg/dL (70-110) H Calcium Level 8.5 mg/dL (8.4-10.5) Total Bilirubin 0.4 mg/dL (0.2-1.0) Aspartate Amino Transferase (AST) 269 U/L (0-35) H Alanine Aminotransferase (ALT) 215 U/L (12-78) H Alkaline Phosphatase 285 U/L (50-136) H Total Protein 6.9 g/dL (6.4-8.2) Albumin 3.0 g/dL (3.4-5.0) L Globulin 3.9 Lipase 23 U/L (114-286) L Differential Total Cells Counted 100 #CELLS Segmented Neutrophils 88 % (31-76) H Lymphocytes 6 % (25-36) L Monocytes 4 % (3-9) Absolute Eosinophils (Manual) 2 % (1-4) Toxic Granulation 1+ (NEGATIVE) Platelet Estimate ADEQUATE Platelet Morphology NORMAL Poikilocytosis 1+ (NEGATIVE) Anisocytosis 1+ (NEGATIVE) Progress Progress Pt has fever, increased WBC and CT that shows thickened GB donnelly in GB fossa. With recent surgery and pain in this region, started on abx, and we will transfer to pt's surgeon for further eval. ?cholecystitis or small bile leak. Spoke with [facility], accepted under Dr. Radford. PROCEDURE:CT ABDOMEN/PELVIS W/ CONTRAST COMPARISON:[facility], CT, CT ABD/PELVIS W/ CONTRAST, 06/25/2017, 09:09 PM. [facility], CT, CT ABD/PELVIS W/ CONTRAST, 02/02/2019, 09:01 PM. [facility], CT, CT ABD/PELVIS W/ CONTRAST, 05/05/2019, 00:01 AM. INDICATIONS:abd pain, 4 wks post partial cholecystectomy at [facility] TECHNIQUE:Axial images were created through the abdomen and pelvis with non-ionic intravenous contrast material. No oral contrast was administered. Sagittal and coronal reconstructions were performed from source images. FINDINGS: LUNG BASES:Normal. No visible pulmonary or pleural disease. LIVER:Normal. No significant liver lesions are identified. BILIARY:CBD stent again noted with pneumobilia. Contracted gallbladder with thickened wall is present in the gallbladder fossa. PANCREAS:No masses. Body and tail are atrophic. SPLEEN:Normal. No enlargement or focal lesion. ADRENALS:Normal. No mass or enlargement. URINARY TRACT:Normal. No focal lesions or hydronephrosis. AORTA/VASCULAR:Normal. No aneurysm. RETROPERITONEUM:Normal. No mass or adenopathy. BOWEL/MESENTERY:There are diverticula of the sigmoid colon without findings of acute diverticulitis. No obstruction, free air, or free fluid are present. The appendix is not visualized. ABDOMINAL WALL:Normal. No mass or hernia. PELVIC ORGANS:Normal. No visible mass. Pelvic organs appropriate for patient age. BONES:There are degenerative changes of the spine. OTHER:Negative. CONCLUSION: 1. Post recent partial cholecystectomy. Contracted gallbladder with thick donnelly present in the gallbladder fossa. Stable CBD stent. 2. Mild diverticulosis. 3. Atrophic body and tail of the pancreas. Course Sepsis Screening Results: Posi: POSITIVE SEPSIS RISK Duration or Total Time Spent w: 60 MIN Vitals & review Data Vital Sign - Last 24 Hours 05/05/19 06/05/19 06/05/19 06/05/19 05:46 13:57 13:57 13:57 Temp 207.5 98.5 98.5 98.5 Pulse 77 77 98 98 Resp 18 18 18 B/P (MAP) 130/86 (101) Pulse Ox 96 96 O2 Delivery Room Air Room Air 06/05/19 06/05/19 06/05/19 14:30 15:44 16:47 Temp 100.8 101.2 Pulse 91 93 Resp 20 20 B/P (MAP) 133/70 (91) 137/73 (94) Pulse Ox 96 97 O2 Delivery Room Air Room Air Laboratory Tests Test 06/05/19 13:50 06/05/19 14:20 06/05/19 14:34 Urine Collection Type VOID Urine Color YELLOW Urine Appearance CLEAR Urine Bilirubin NEGATIVE MG/DL Urine Ketones NEGATIVE Urine Specific Kane 1.020 Urine pH 5 Urine Protein NEGATIVE Urine Urobilinogen NORMAL Urine Nitrate NEGATIVE Urine Leukocyte Esterase NEGATIVE Urine Blood 25 1+ Urine RBC 2-5 RBC/HPF Urine WBC 0-2 WBC/HPF Urine Squamous Epithelial Cells FEW #/HPF Urine Bacteria RARE Urine Glucose 100 White Blood Count 12.8 10^3/uL Red Blood Count 3.63 10^6/uL Hemoglobin 10.9 g/dL Hematocrit 33.4 % Mean Corpuscular Volume 92.0 fL Mean Corpuscular Hemoglobin 30.0 pg Mean Corpuscular Hemoglobin Concent 32.6 g/dL Red Cell Distribution Width 15.7 % Platelet Count 216 10^3/uL Mean Platelet Volume 8.6 fL Neutrophils (%) (Auto) 92.8 % Lymphocytes (%) (Auto) 2.0 % Monocytes (%) (Auto) 4.4 % Neutrophils # (Auto) 11.9 10^3/uL Lymphocytes # (Auto) 0.3 10^3/uL Monocytes # (Auto) 0.6 10^3/uL Absolute Immature Granulocyte (auto 0.06 10^3 u/L Immature Granulocytes % 0.50 % Eosinophils % 0.2 % Basophils % 0.1 % Basophils # 0.0 10^3/uL Eosinophil Count 0.0 10^3/uL Sodium Level 137 mmol/L Potassium Level 3.2 mmol/L Chloride Level 102.0 mmol/L Carbon Dioxide Level 24.2 mmol/L Anion Gap 14.0 Blood Urea Nitrogen 16 mg/dL Creatinine 0.85 mg/dL Estimated GFR () 104.9 BUN/Creatinine Ratio 18.0 Glucose Level 207 mg/dL Calcium Level 8.5 mg/dL Total Bilirubin 0.4 mg/dL Aspartate Amino Transf (AST/SGOT) 269 U/L Alanine Aminotransferase (ALT/SGPT) 215 U/L Alkaline Phosphatase 285 U/L Total Protein 6.9 g/dL Albumin 3.0 g/dL Globulin 3.9 Lipase 23 U/L Differential Total Cells Counted 100 #CELLS Segmented Neutrophils 88 % Lymphocytes 6 % Monocytes 4 % Absolute Eosinophils (Manual) 2 % Toxic Granulation 1+ Platelet Estimate ADEQUATE Platelet Morphology NORMAL Poikilocytosis 1+ Anisocytosis 1+ Current Medications Medications (Trade) Dose Ordered Sig/Keith PRN Reason Start Time Stop Time Status Last Admin Piperacillin Sod/ Tazobactam Sod 3.375 gm/Sodium Chloride 100 ml @ 100 mls/hr Q6H 06/05/19 16:00 07/05/19 15:59 06/05/19 16:08 Sepsis Infection Criteria Pres: Suspected Infection O2 Sat by Pulse Oximetry: 96 Departure Time of Disposition: 16:20 Disposition: 01 HOME, SELF-CARE Impression: Primary Impression: Cholecystitis Additional Impression: Sepsis Condition: Stable Referrals: SHAVON COLLIER MD (PCP) PRIMARY CARE PROVIDER Duration or Time Spent with Pa: 40 Problem Qualifiers Additional Impression: Sepsis Sepsis type: sepsis due to unspecified organism Sepsis acute organ dysfunction status: unspecified Qualified Codes: A41.9 - Sepsis, unspecified organism VELVET PINEDA DO Jun 05, 2019 16:21
--- NOTE | 2019-06-05 16:45 | NUR ---
dispatch [facility]UAN LUIS [facility]ORTO CALLED [employer] TO NOTIFY THEM OF TRANSFER.
[2019-06-05 16:47] VITALS: BP 137/73
[2019-06-05 18:08] VITALS: BP 137/73
== END 2019-06-05 17:30 | disposition home or self-care (01) ==
LOC: ER 13:28
DX: K81.9 Cholecystitis, unspecified (principal); A41.9 Sepsis, unspecified organism; E11.9 Type 2 diabetes mellitus without complications; I10 Essential (primary) hypertension; Z79.82 Long term (current) use of aspirin; Z79.899 Other long term (current) drug therapy; Z90.49 Acquired absence of other specified parts of digestive tract; Z79.891 Long term (current) use of opiate analgesic; Z79.4 Long term (current) use of insulin
CPT/HCPCS: 36415; 74177; 80053; 81000; 83690; 85025; 87040 ×2; 87086; 96365; 99285; J2543; J7030; J7050 ×2; Q9965; 96361